=== PATIENT | male | born 2000 | race Caucasian/White ===

== ENCOUNTER 2019-09-18 15:03 | Emergency (ER) | payer MEDICAID ==
[~2019-09-18] VITALS: Ht 185.4 cm; Wt 63.5 kg
[2019-09-18 15:07] VITALS: BP_SYST 120
[2019-09-18 15:15] VITALS: BP_SYST 120
== END 2019-09-18 15:15 | disposition home or self-care (01) ==
LOC: SED 15:03
DX: B86 Scabies (principal)
CPT/HCPCS: 99283

== ENCOUNTER 2022-06-26 12:59 | Emergency (ER) | payer MEDICAID ==
[~2022-06-26] VITALS: Ht 180.3 cm; Wt 69.9 kg
[2022-06-26 13:17] VITALS: BP_SYST 141
[2022-06-26] MEDS ORDERED: HYDR-3917 PO (15:38)
[2022-06-26] MEDS ORDERED: IBUP-1971 PO (15:38)
== END 2022-06-26 15:51 | disposition home or self-care (01) ==
LOC: SED 12:59
DX: S93.601A Unspecified sprain of right foot, initial encounter (principal); Z79.899 Other long term (current) drug therapy; W01.0XXA Fall on same level from slipping, tripping and stumbling without subsequent striking against object, initial encounter; Y93.89 Activity, other specified; Y92.89 Other specified places as the place of occurrence of the external cause; Y99.8 Other external cause status
CPT/HCPCS: 99283

== ENCOUNTER 2023-04-20 11:09 | Emergency (ER) | payer MEDICAID ==
[~2023-04-20] VITALS: Ht 180.3 cm; Wt 72.6 kg
[~2023-04-20 11:09] MED LIST: HYDR-3917 PO; IBUP-1971 PO
[2023-04-20 11:10] VITALS: BP_SYST 114; PULSE 89; RESP 17; TEMP 97.5; O2SAT 97
[2023-04-20] MEDS ORDERED: BACITRACIN 1 GM OINT TP ONE (11:30)
[2023-04-20] MEDS ORDERED: DIPHTH,PERTUSS(ACELL),TET VAC 0.5 ML VIAL (Tdap) I.M. ONE (11:30)
[2023-04-20 11:56] VITALS: BP_SYST 114; PULSE 89; RESP 17; TEMP 97.5; O2SAT 97
== END 2023-04-20 11:56 | disposition home or self-care (01) ==
LOC: SED 11:09
DX: S61.012A Laceration without foreign body of left thumb without damage to nail, initial encounter (principal); Z79.899 Other long term (current) drug therapy; W45.8XXA Other foreign body or object entering through skin, initial encounter; Y93.89 Activity, other specified; Y92.89 Other specified places as the place of occurrence of the external cause; Y99.8 Other external cause status
CPT/HCPCS: 90715; 99283